=== PATIENT | male | born 1975 | race Two or more races ===

== ENCOUNTER 2025-01-25 08:50 | Emergency (ER) | payer MEDICAID, SELFPAY ==
[2025-01-25 08:57] VITALS: BP 120/78; PULSE 67; RESP 16; TEMP 36.5; O2SAT 100; BMI 23.0
--- NOTE | 2025-01-25 09:07 | EDNOTE_ITS ---
ED Wound/Laceration-RME/HPI General Chief Complaint: Wound/Laceration Stated Complaint: Laceration to left fingers Time Seen by Provider: 01/25/25 09:05 Arrival date/time: 01/25/25 08:50 Limitations: language barrier RME / HPI RME / HPI narrative: 49-year-old male with no reported past medical history presents for evaluation of multiple lacerations to his right hand at the 3rd and 4th digit. 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 Patient denies numbness, tingling, weakness. Patient states he is right-hand dominant. Denies additional injury and prior right hand injury. Related Data Previous Rx's ?Medication ?Instructions ?Recorded amoxicillin 875 mg-potassium 1 tab PO BID laceration 7 days 01/25/25 clavulanate 125 mg tablet #14 tabs Allergies Allergy/AdvReac Type Severity Reaction Status Date / Time No Known Allergies Allergy Unverified 01/25/25 09:07 Review of Systems Constitutional Constitutional: Denies chills, Denies fever(s) and Denies headache(s) Eyes Eyes: Denies blurry vision and Denies change in vision ENT Ears, Nose, Mouth, and Throat: Denies facial pain and Denies headache(s) Cardiovascular Cardiovascular: Denies chest pain, Denies dyspnea and Denies leg edema Respiratory Respiratory: Denies cough and Denies dyspnea Gastrointestinal Gastrointestinal: Denies nausea and Denies vomiting Musculoskeletal Musculoskeletal: Denies arthralgias, Denies back pain, Denies limited range of motion, Denies numbness, Denies stiffness and Denies tingling Integumentary/Breasts Skin/Breast: Reports bleeding lesions, Reports nail changes and Reports wounds Neurologic Neurologic: Denies headache(s), Denies numbness and Denies tingling Past Medical History Social History SMOKING STATUS: Never smoker ED Exam General Limitations: Present language barrier General appearance: Present alert and in no apparent distress Head Head exam: Present atraumatic and normocephalic Eye Eye exam: Present normal appearance, PERRL and EOMI ENT ENT exam: Present normal oropharynx and mucous membranes moist Neck Neck exam: Present normal inspection and full ROM Chest Chest inspection: Present normal inspection and symmetric chest wall rise Respiratory Respiratory exam: Present normal lung sounds bilaterally; Absent respiratory distress Cardiovascular Cardiovascular exam: Present regular rate and +S1 Abdominal Exam Abdominal exam: Present soft; Absent distention Expanded Upper Extremity Exam Elbow exam: Present normal inspection and full ROM Forearm/Wrist exam: Present normal inspection and full ROM Hand exam: Present normal inspection, full ROM, laceration (Multiple lacerations 3rd and 4th digit right hand with bleeding well-controlled. Full passive and active range of motion right hand. No deep structures involved upon copious irrigation.) and nail avulsion (Laceration right third nailbed right hand.) Neurosensory exam: Normal radial nerve Vascular exam: Normal capillary refill and radial pulse Back Exam Back exam: Present normal inspection and full ROM Neurological Exam Neurological exam: Present alert and normal gait Psychiatric Psychiatric exam: Present normal affect Skin Skin exam: Present warm and dry Course Quality Measures none Orders Category Date Time Status Set Up Suture Tray STAT Care 01/25/25 09:05 Completed Lidocaine 1% 20 ml [Xylocaine 1% 20 ML] Med 01/25/25 09:05 Discontinued 10 ml IM X1 ONE Tetanus, Diphtheria Toxoids/Pf [Tenivac-Adult] Med 01/25/25 09:05 Discontinued 0.5 ml SCI .ONCE ONE Vital Signs Vital signs: Vital Signs Temperature 97.7 F 01/25/25 08:57 Pulse Rate 67 01/25/25 08:57 Respiratory Rate 16 01/25/25 08:57 Blood Pressure 120/78 01/25/25 08:57 Pulse Oximetry (%) 100 01/25/25 08:57 Oxygen Delivery Method Room Air 01/25/25 08:57 Procedures -ED Laceration Laceration 1: Site: hand Side (If applicable): right Size (cm): 3 Description: linear Local Anesthetic: lidocaine 1% Amount of anesthesia used (mL): 5 Pre-repair: wound explored, irrigated extensively and deep structures intact Suture size (cm): 5-0 Number of sutures: 3 Nerve Block Nerve Block 1: Time out performed: No Local Anesthetic: lidocaine 1% Amount of anesthesia used (mL): 5 Nerve Blocks: digital Procedure Successful: Yes Patient Tolerated Procedure: well Complications: none Nerve Block 2: Time out performed: No Local Anesthetic: lidocaine 1% Amount of anesthesia used (mL): 5 Nerve Blocks: digital Procedure Successful: Yes Patient Tolerated Procedure: well Complications: none Wound / Laceration MDM Narrative MDM Narrative:: 49-year-old male presented for evaluation of multiple laceration to his right hand following an accident while working in garage. Tetanus was updated today. No deep structures appear to be involved upon irrigation and examination of right hand. Laceration was repaired in the department which the patient tolerated well. Patient was started on antibiotic for the next 7 days and ad vised to come back in x 10 days for suture removal. Ultimately patient discharged with plan to follow-up with primary care within the week for wound recheck. Patient stable at time discharge. Patient data External records reviewed:: [facility] previous records Clinical information provided by:: patient Social determinants that could affect healthcare access:: none Patient has the following chronic illnesses:: None reported. How is presenting disease/condition affected by chronic disease/condition?: no chronic disease Evaluation data The following diagnostics were reviewed and interpreted by me:: other (specify) Lab and/or radiology exams considered but not ordered:: Considered not ordered. Interpretation Summary: Considered not ordered. Medications / Prescriptions Medications or Prescriptions considered but not ordered:: Rx given. Medication administrations:: Medication Administration History Discontinued Medications Lidocaine HCl (Lidocaine Hcl 1% 20 Ml Vial) 10 ml IM X1 ONE Stop: 01/25/25 09:06 Last Admin: 01/25/25 09:17 Dose: 10 ml Documented By: BAILEE Comments: GIVEN TO [facility] Tetanus/Diphtheria Toxoids (Tetanus,Diphtheria Toxoids/Pf (Adult) 0.5 Ml Syringe) 0.5 ml SCi .ONCE ONE Stop: 01/25/25 09:06 Last Admin: 01/25/25 09:18 Dose: 0.5 ml Documented By: BAILEE Rx given. Consultations Consultation(s) initiated? (list below): No Diagnosis Wound Differential Diagnosis: laceration, abscess, abrasion, avulsion of skin and other (Laceration nailbed.) Most likely diagnosis given after review of the tests above:: Multiple lacerations. Admission Indicated Admission indicated?: not indicated Admission Request Was there a request for admission?: No Disposition Plan Disposition Plan: Discharge Discharge Attestation Discharge Attestation: The patient and all family members were given an opportunity to ask questions and understood the discharge instructions. Discharge instructions specifically effects, indications for sooner follow up or return to the emergency department, and the expected course of current diagnosis. Patient condition: Stable Discharge Plan Plan Patient Disposition: HOME (Self Care) Discharge Disposition comment: stable Prescriptions/Referrals Prescriptions/Med Rec: New amoxicillin-pot clavulanate 875-125 mg tablet 1 tab PO BID 7 Days Qty: 14 0RF Referrals: Yair Rodriguez PA-C [Primary Care Provider] - In 1 week Problem List Clinical Impression: Laceration Patient/Caregiver Discharge Instructions Additional Instructions: Return for suture removal in x 10 days. Take Augmentin twice daily for the next x 7 days. Return to the ED if you develop worsening redness, swelling, pain for reevaluation. You may take Tylenol or ibuprofen every 6 hours as needed for pain. Follow-up with primary care within the next 3 to 4 days for reevaluation. Print Language: Malagasy Stand Alone Forms: Sameera Award Info., Patient Portal Info Letter PA/KOFFI Supervising Physician CAROL/KOFFI Supervising Physician: Dr. Martinez
[2025-01-25] MEDS: LIDOCAINE HCL 1% 20 ML VIAL 10 ML IM (09:17)
[2025-01-25] MEDS: TETANUS,DIPHTHERIA TOXOIDS/PF (ADULT) 0.5 ML SYRINGE SCi (09:18)
== END 2025-01-25 10:44 | disposition home or self-care (01) ==
PROVIDERS: Emergency Provider Emergency Medicine; PCP Physician Assistant
DX: S61.411A Laceration without foreign body of right hand, initial encounter (principal); W23.2XXA Caught, crushed, jammed or pinched between a moving and stationary object, initial encounter; Y92.513 Shop (commercial) as the place of occurrence of the external cause; Y99.0 Civilian activity done for income or pay; Z23 Encounter for immunization
CPT/HCPCS: 12002; 90471; 90714; 99283; J3490